=== PATIENT | male | born 1975 | race Caucasian/White ===

== ENCOUNTER 2016-09-20 23:46 | Emergency (ER) | payer BC ==
[~2016-09-20] VITALS: Ht 175.3 cm; Wt 99.8 kg
[2016-09-21 00:12] VITALS: BP 161/98
[2016-09-21] MEDS ORDERED: KETOROLAC TROMETHAMINE 60 MG/2 ML SYRINGE. IM ONE (00:55)
[2016-09-21] MEDS ORDERED: ORPHENADRINE CITRATE 60 MG/2 ML VIAL. IM ONE (00:55)
[2016-09-21] MEDS ORDERED: METH-37 PO (01:04)
[2016-09-21] MEDS ORDERED: HYDR-971 PO (01:04)
--- NOTE | 2016-09-21 01:04 | PHYS DOC ---
Past Medical History Past Medical History: No Pertinent History Past Surgical History: No Surgical History Additional Information: nonsmoker Alcohol Use: Heavy Additional Information: 6 PACK/NIGHT Drug Use: None Adult General Chief Complaint Chief Complaint: LOWER BACK PAIN OR INJURY HPI HPI Patient is a 41 year old male who presents with low back pain with radiation down the right leg for 3 weeks. He states that the pain began after lifting a reclining chair himself without assistance. He denies any incontinence or saddle anesthesia. She does not have any focal weakness. He has occasional numbness down the right leg. He denies nausea, vomiting, abdominal pain, or urinary symptoms. He was seen previously at an urgent care and given steroids. He states that this was not helpful in relieving his pain. He does not have a PCP. Review of Systems Review of Systems Constitutional: Denies fever or chills. [] GI: Denies abdominal pain, nausea, vomiting, bloody stools or diarrhea. [] : Denies dysuria, hematuria or urinary frequency. [] Musculoskeletal: Denies joint pain. Reports low-back pain. Integument: Denies rash or skin lesions. [] Neurologic: Denies headache, focal weakness. Denies incontinence or saddle anesthesia. Reports intermittent right leg numbness. All systems reviewed and negative unless otherwise stated in the HPI. Current Medications Current Medications Current Medications Medications (Trade) Dose Ordered Sig/[facility] Start Time Stop Time Status Last Admin Dose Admin Ketorolac Tromethamine (Toradol Im) 60 mg 1X ONCE 09/21/16 00:55 09/21/16 00:56 DC 09/21/16 00:52 60 MG Orphenadrine Citrate (Norflex) 60 mg 1X ONCE 09/21/16 00:55 09/21/16 00:56 DC 09/21/16 00:52 60 MG Allergies Allergies Allergies Coded Allergies Type Severity Reaction Last Updated Verified No Known Drug Allergies 09/21/16 No Physical Exam Physical Exam Constitutional: Well developed, well nourished, no acute distress, non-toxic appearance. [] HENT: Normocephalic, atraumatic, oropharynx moist. [] Eyes: PERRLA, EOMI, conjunctiva normal, no discharge. [] Neck: Normal range of motion, no tenderness, supple, no stridor. [] Cardiovascular: Heart rate regular rhythm, no murmur. [] Lungs & Thorax: Bilateral breath sounds clear to auscultation without wheezes, rales, or rhonchi. [] Abdomen: Bowel sounds normal, soft, no tenderness, no masses, no pulsatile masses. [] Skin: Warm, dry, no erythema, no rash. [] Back: No midline tenderness, no CVA tenderness. Right paraspinal sacral tenderness with muscle spasm. Straight leg raise negative. Extremities: No tenderness, ROM intact, no edema. Distal pulses equal bilaterally. [] Neurologic: Alert and oriented X 3, normal motor function, normal sensory function, no focal deficits noted. Patient walks with a steady gait without assistance. Psychologic: Affect normal, judgement normal, mood normal. [] Current Patient Data Vital Signs Vital Signs Date Time Temp Pulse Resp B/P Pulse Ox O2 Delivery O2 Flow Rate FiO2 09/21/16 00:12 98.1 98 18 96 Room Air 98.1 EKG EKG [] Radiology/Procedures Radiology/Procedures [] Course & Med Decision Making Course & Med Decision Making Pertinent Labs and Imaging studies reviewed. (See chart for details) [] Dragon Disclaimer Dragon Disclaimer This electronic medical record was generated, in whole or in part, using a voice recognition dictation system. Departure Departure Impression: Primary Impression: Low back strain Additional Impression: Low back pain Disposition: 01 HOME, SELF-CARE Condition: STABLE Referrals: NO PCP (PCP) Patient Instructions: Back Pain, Adult, [id number], Sciatica, [id number] Additional Instructions: Please take the prescribed medications as directed. Do not drive or operate heavy machinery while taking pain medication or muscle relaxers. In order to help your back pain, apply heat, practice gentle stretching, and light massage. Avoid bending or lifting activities that will further strain your back. Please follow-up with a primary care provider if your pain continues. Return to the emergency department if you have loss of bowel or bladder control , numbness between your legs, or other new or concerning symptoms. Scripts Methocarbamol (Robaxin)500 Mg [id number] Mg PO QID #20 TAB Prov:MINA DONOVAN 09/21/16 Hydrocodone/Apap 5-325 ([place] 5-325 Tablet)1 Each Tablet1 Tab PO PRN Q6HRS PRN PAIN #20 TAB Prov:MINA DONOVAN 09/21/16 Problem Qualifiers Primary Impression: Low back strain Encounter type: initial encounter Qualified Code: S39.012A - Strain of muscle, fascia and tendon of lower back, initial encounter Additional Impression: Low back pain Chronicity: acute Back pain laterality: right Sciatica presence: with sciatica Sciatica laterality: sciatica of right side Qualified Code: M54.41 - Lumbago with sciatica, right side MINA DONOVAN Sep 21, 2016 01:04
== END 2016-09-21 01:10 | disposition home or self-care (01) ==
LOC: ER 23:46
DX: S39.012A Strain of muscle, fascia and tendon of lower back, initial encounter (principal); M54.41 Lumbago with sciatica, right side; F17.200 Nicotine dependence, unspecified, uncomplicated; X50.0XXA Overexertion from strenuous movement or load, initial encounter; Y93.89 Activity, other specified; Y92.89 Other specified places as the place of occurrence of the external cause; Y99.8 Other external cause status
CPT/HCPCS: 96372; 99284; J1885; J2360